=== PATIENT | female | born 1980 | race Two or more races ===

== ENCOUNTER 2017-01-17 13:40 | Emergency (ER) | payer MEDICAID ==
--- NOTE | ~2017-01-17 | ER ---
PATIENT'S NAME: FUNMILAYO MORA [facility] AGE: 36 Y [address] ROOM: [place] [address] LOCATION: [facility] ADMIT DATE: 01/17/2017 ER/Outpatient Report DISCHARGE DATE: 01/17/2017 FAMILY PHYSICIAN: PHYSICIAN, NO ATTENDING PHYSICIAN: Rufino Winkler Time of Patient's Arrival: 1340 hours. Time of Patient's Evaluation: 1350 hours. CHIEF COMPLAINT: Heart palpitations. HISTORY OF PRESENT ILLNESS: This is a 36-year-old, qot-Eqjepoy-ozpzzpvt female, who presents to the ER with some heart palpitations. Interpretation was done through the [employer] [facility]. The patient states that around 5:30 this morning someone woke her up out of her sleep and she was startled and it scared her and she felt her heart racing at that time. She states that she felt a little bit short of breath with her speech after this occurred. She states that she has never had anything like this before. She also went to work today and she felt like her heart was racing at work today as well for approximately 30 minutes. She states she has been taking some energy supplementations to help her get a lot of energy to get through her day and also to help her exercise. She has been taking this the last couple of months. She also states that she missed a menstrual cycle. She denies any other problems at this time. ALLERGIES: NO KNOWN ALLERGIES. MEDICATIONS: Please see medication list in nurse's notes. PAST MEDICAL HISTORY: She was treated for depression 7 months ago. SOCIAL HISTORY: She smokes cigarettes. Denies any drug or alcohol use. REVIEW OF SYSTEMS: All systems are reviewed and are negative with the exception of those discussed in the HPI. PHYSICAL EXAMINATION: VITAL SIGNS: Height 5 feet 7 inches stated, weight 71.2 kg taken, blood pressure is 107/68, pulse 84, respirations 14, temperature 98.7 degrees PATIENT'S NAME: FUNMILAYO MORA [facility] AGE: 36 Y [address] ROOM: [place] [address] LOCATION: [facility] ADMIT DATE: 01/17/2017 ER/Outpatient Report DISCHARGE DATE: 01/17/2017 FAMILY PHYSICIAN: PHYSICIAN, NO ATTENDING PHYSICIAN: Peterson,Rufino J orally, and saturations 97% on room air. [place] Coma Score is 15. GENERAL: Alert, calm, well-developed 36-year-old, in no acute distress. HEENT: Head: Normocephalic. Eyes: Pupils are equal and active to light. She does display moist mucous membranes. LUNGS: Clear to auscultation bilaterally. HEART: Regular rate and rhythm. ABDOMEN: Soft, it is nontender. She has good bowel sounds throughout. EXTREMITIES: No clubbing or cyanosis. She has no pedal edema. She has full range of motion of all of her limbs. SKIN: Warm, dry, and intact. LABORATORY DATA: CBC: White count is 8.1, hemoglobin is 15.1, platelets are 227, and ANC is 4.9. INR is 0.99. CMS: Glucose is 104, otherwise unremarkable. Magnesium is 2.2. CPK is 64, CK-MB is 1.0, troponin I is less than 0.040. HCG was positive at 2961.0. TSH is 2.880. EKG shows sinus rhythm. Chest x-ray was bilateral was canceled after test came back. IMPRESSION: 1. Heart palpitations. 2. Positive . ASSESSMENT AND PLAN: We did monitor the patient here for quite some time. She had no other further heart palpitations while she was here. We will dismiss the patient to home. She needs to continue to push fluids. I advised her to take vitamins. She needs to continue to monitor her symptoms and follow up with her primary care physician for followup. The patient should not take any more of the energy supplements that she has been taking either. The patient understands and agrees with care. XIN BURTON PA-C FOR DO RICHARD MESSINA/bhavna /[id number] d: t: 01/24/17 1359, OUTPATIENT REPORT
[2017-01-17 14:42] LABS: BASOPHIL % 0.1 %; HEMATOCRIT 43.3 % (33.0-46.0); HEMOGLOBIN 15.1 g/dL (11.0-15.0); IMMATURE GRANULOCYTE % 0.4 %; LYMPHOCYTE # 2.6 K/uL (0.8-4.0); LYMPHOCYTE % 32.4 %; MCH 31.6 pg (27.0-34.0); MCHC 34.9 gm/dL (32.0-36.5); MCV 90.6 fl (83.0-98.0); MONOCYTE # 0.6 K/uL (0.0-1.0); MONOCYTE % 6.9 %; MPV 10.6 fl (9.4-12.4); NEUTROPHIL # (ANC) 4.9 K/uL (1.8-7.8); NEUTROPHIL % 60.2 %; NRBC % 0 /100WBC (0-0.00); PLATELET COUNT 227 K/uL (150-450); RBC 4.78 M/uL (3.50-5.50); RDW-CV 12.2 % (11.9-14.6); WBC 8.1 K/uL (4.0-11.0)
[2017-01-17 14:58] LABS: INR - (THERAPEUTIC) 0.99 (0.92-1.07); PROTIME 10.4 SECONDS (9.8-11.4); PTT 29 SECONDS (25-32)
[2017-01-17 15:04] LABS: ALBUMIN 3.5 gm/dL (3.5-5.0); ALK PHOS 59 IU/L (33-138); ALT 16 IU/L (12-78); AST 12 IU/L (10-40); BLOOD UREA NITROGEN 9 mg/dL (6-24); CALCIUM 8.7 mg/dL (8.5-10.5); CHLORIDE 110 mMol/L (96-110); CO2 22 mMol/L (22-32); CPK 64 IU/L (21-215); CREATININE 0.8 mg/dL (0.5-1.1); ESTIMATED GFR (MDRD EQUATION) > 60; MAGNESIUM 2.2 mg/dL (1.8-2.6); SODIUM 139 mMol/L (135-145); TOTAL BILIRUBIN 0.2 mg/dL (0.0-1.5); TOTAL PROTEIN 6.7 g/dL (6.0-8.4)
== END 2017-01-17 16:18 | disposition disaster alternative care site (69) ==
LOC: GMED 13:40
PROVIDERS: Physician Assistant Medical
DX: R00.2 Palpitations (principal); F17.210 Nicotine dependence, cigarettes, uncomplicated; F32.9 Major depressive disorder, single episode, unspecified; Z33.1 Pregnant state, incidental

== ENCOUNTER 2017-01-24 14:09 | Emergency (ER) | payer MEDICAID ==
--- NOTE | ~2017-01-24 | ER ---
PATIENT'S NAME: FUNMILAYO MORA [facility] AGE: 36 Y [address] ROOM: [place] [address] LOCATION: [facility] ADMIT DATE: 01/24/2017 ER/Outpatient Report DISCHARGE DATE: 01/24/2017 FAMILY PHYSICIAN: PHYSICIAN, NO ATTENDING PHYSICIAN: Jazzy Winkler Time of Arrival: 1409 hours. Time of Evaluation: 1425 hours. CHIEF COMPLAINT: Abdominal discomfort, . HISTORY OF PRESENT ILLNESS: This is a 36-year-old, dbm-Gupqyjy-wlhlbexe female, who presents to the ER. She states she has not been feeling well for the past 2 days. Interpretation was done through our dental laboratory technician, Mac. She states that she works at [employer]. She has to lift heavy things. She states that she has noticed some lower abdominal discomfort after her strenuous work shift. She states she has also noticed some vaginal spotting after voiding. She has not had to use a pad for her bleeding. She is wanting a work note stating that she can have light duty until she is seen by her doctor. She has had no troubles with urination. No cramping sensation. No fever or chills. No troubles with bowel movements. She also reports that she has had a right ovarian cyst 6 months ago. She states that she has had no further heart palpitations since her last visit here in the emergency room since she stopped taking her energy supplement. ALLERGIES: NO KNOWN ALLERGIES. MEDICATIONS: None. PAST MEDICAL HISTORY: Negative. PAST SURGICAL HISTORY: Right knee, right hand, and wrist surgery. SOCIAL HISTORY: She is a [employer] employe. Denies smoking or drug use. REVIEW OF SYSTEMS: All systems were reviewed and were negative with the exception of those discussed in the HPI. PATIENT'S NAME: FUNMILAYO MORA [facility] AGE: 36 Y [address] ROOM: [place] [address] LOCATION: [facility] ADMIT DATE: 01/24/2017 ER/Outpatient Report DISCHARGE DATE: 01/24/2017 FAMILY PHYSICIAN: PHYSICIAN, NO ATTENDING PHYSICIAN: Jazzy Winkler PHYSICAL EXAMINATION: VITAL SIGNS: Weight 68 kg taken, blood pressure is 119/74, pulse 70, respirations 18, temperature 98.4 degrees orally, saturations 99% on room air. [place] Coma Score is 15. GENERAL: An alert, calm, well-developed female, in no acute distress. LUNGS: Clear to auscultation bilaterally. No wheezes or crackles. Normal respiratory effort. HEART: Regular rate and rhythm. No lifts, thrills, or murmurs. ABDOMEN: Soft, it is nontender. She has good bowel sounds throughout. No masses are palpated. EXTREMITIES: No clubbing or cyanosis. She has full range of motion of all limbs. LABORATORY DATA AND X-RAYS: CBC: White count is 7.4, hemoglobin is 14.4, platelets 251. HCG is 15,530.0 Urinalysis is negative for any infection. There is no blood in her urine. IMPRESSION: Intrauterine with vaginal spotting. ASSESSMENT AND PLAN: I discussed the patient's care with Dr. Winkler. Dr. Winkler did a bedside ultrasound, which showed a sac inside the uterus. No cardiac movement was detected at this time, most likely due to early . The patient did rest comfortably her entire stay. Her abdomen remained nonsurgical and nontender. We will have her continue to push fluids. Monitor her symptoms. Pelvic rest. I would like her to follow up with her primary care physician as she already has set up at the beginning of February, and I did write her for a note for light duty. The patient understands and agrees with care. XIN BURTON PA-C FOR JAZZY WINKLER DO ACDayne/modl /[id number] ATTENDING ADDENDUM: I saw and evaluated the patient. I have discussed with the PA, agree with the PA's findings and plan and agree with the documented note above. Bedside ultrasound does show a yolk sac within the uterus found in two different planes. There is no evidence of adnexal mass. JAZZY WINKLER DO d: 01/24/172305 t: 01/29/172045, OUTPATIENT REPORT
[2017-01-24 15:13] LABS: BASOPHIL % 0.1 %; HEMATOCRIT 41.3 % (33.0-46.0); HEMOGLOBIN 14.4 g/dL (11.0-15.0); IMMATURE GRANULOCYTE % 0.3 %; LYMPHOCYTE # 2.5 K/uL (0.8-4.0); LYMPHOCYTE % 34.3 %; MCHC 34.9 gm/dL (32.0-36.5); MCV 88.8 fl (83.0-98.0); MONOCYTE # 0.5 K/uL (0.0-1.0); MONOCYTE % 6.6 %; MPV 10.3 fl (9.4-12.4); NEUTROPHIL # (ANC) 4.3 K/uL (1.8-7.8); NEUTROPHIL % 58.7 %; NRBC % 0 /100WBC (0-0.00); PLATELET COUNT 251 K/uL (150-450); RBC 4.65 M/uL (3.50-5.50); RDW-CV 11.9 % (11.9-14.6); WBC 7.4 K/uL (4.0-11.0)
[2017-01-24 15:27] LABS: BILIRUBIN URINE NEGATIVE (NEGATIVE); BLOOD URINE NEGATIVE /UL (NEGATIVE); COLOR URINE YELLOW (YELLOW); GLUCOSE URINE NEGATIVE (NEGATIVE); KETONE URINE NEGATIVE (NEGATIVE); LEUKOCYTES URINE NEGATIVE /UL (NEGATIVE); NITRITE URINE NEGATIVE (NEGATIVE); PROTEIN URINE NEGATIVE (NEGATIVE); SPEC GRAVITY URINE 1.025 (1.003-1.035); TURBIDITY URINE CLEAR (CLEAR); UROBILINOGEN URINE NORMAL (NORMAL)
== END 2017-01-24 16:04 | disposition disaster alternative care site (69) ==
LOC: GMED 14:09
PROVIDERS: Emergency Medicine
DX: O26.851 Spotting complicating pregnancy, first trimester (principal); O09.521 Supervision of elderly multigravida, first trimester; Z98.890 Other specified postprocedural states

== ENCOUNTER 2017-02-09 10:54 | Emergency (ER) | payer MEDICAID ==
--- NOTE | ~2017-02-09 | ER ---
PATIENT'S NAME: FUNMILAYO MORA [facility] AGE: 36 Y [address] ROOM: [place] [address] LOCATION: [facility] ADMIT DATE: 02/09/2017 ER/Outpatient Report DISCHARGE DATE: 02/09/2017 FAMILY PHYSICIAN: PHYSICIAN, NO ATTENDING PHYSICIAN: Jordin Marino Time of Arrival: 1054 hours. Time of Evaluation: 1137 hours. IDENTIFICATION: A 36-year-old female. CHIEF COMPLAINT: Work restrictions. HISTORY OF PRESENT ILLNESS: The patient is a 36-year-old G6, P2 at 9 weeks' gestation by LMP of 12/07/2016. She has had 2 spontaneous ABs and 1 ectopic . She was seen here in the emergency room on January 17 with heart palpitations. At that date, she was given a note for work. She was seen again on January 24, and had some spotting. She did have a bedside ultrasound per Dr. Winkler, which showed a yolk sac within the uterus. No evidence of adnexal mass. Again, she was given a work note. Then on , she was given yet an additional work note that she could return with restrictions. She states that she needs a work note to return with no restrictions. She is feeling fine. She has had no bleeding since January 25. She has no pain. She is not lightheaded or dizzy. She had been drinking some energy drinks, and the palpitations have resolved since discontinuing those. ALLERGIES: NO KNOWN DRUG ALLERGIES. MEDICATIONS: No current medications. MEDICAL PROBLEMS: Depression 7 months ago, herniated lumbar disk. PREVIOUS SURGERIES: Right knee, hand, and wrist, and 2 normal vaginal deliveries. SOCIAL HISTORY: The patient works at [employer]. She lives in [place]. Tobacco use, denies. Alcohol use, denies. Drug use, denies. PATIENT'S NAME: FUNMILAYO MORA [facility] AGE: 36 Y [address] ROOM: [place] [address] LOCATION: [facility] ADMIT DATE: 02/09/2017 ER/Outpatient Report DISCHARGE DATE: 02/09/2017 FAMILY PHYSICIAN: PHYSICIAN, MEAGAN ATTENDING PHYSICIAN: Jordin Marino FAMILY HISTORY: No pertinent family history identified. REVIEW OF SYSTEMS: All systems reviewed and negative other than what is noted in the HPI. PHYSICAL EXAMINATION: VITAL SIGNS: Height 5 feet 5 inches, weight 70.4 kg, blood pressure 120/73, pulse 70, respirations 17, temp 98.2, and saturations 98%. GENERAL: A 36-year-old female, in no acute distress. HEENT: Head: Normocephalic, atraumatic. Eyes: Pupils equal and reactive to light and accommodation. Extraocular movements intact. Nose: Mucosa pink. No lesions or drainage. Mouth: No lesions. Pharynx benign. NECK: Supple. No lymphadenopathy. No nuchal rigidity. LUNGS: Clear to auscultation. HEART: Regular rate and rhythm. ABDOMEN: Soft, nondistended, nontender. SKIN: [place], warm, and dry. No lesions or rashes noted. NEURO: The patient is alert and oriented. No cranial nerve defects. She has no lower extremity edema. No calf tenderness. IMPRESSION: Intrauterine , 9 weeks' gestation. PLAN: Okay to return to work as tolerated. No restrictions. Follow up with her [employer] of choice. Follow up sooner if increase in pain, bleeding problems, or concerns. The patient understands and agrees, and all questions have been answered. JORDIN MARINO MD CAR/modl /[id number] d: 02/09/17 2139 t: 02/13/17911, OUTPATIENT REPORT
== END 2017-02-09 12:04 | disposition disaster alternative care site (69) ==
LOC: GMED 10:54
DX: Z02.79 Encounter for issue of other medical certificate (principal); Z98.890 Other specified postprocedural states; O99.331 Smoking (tobacco) complicating pregnancy, first trimester; F17.200 Nicotine dependence, unspecified, uncomplicated; Z3A.09 9 weeks gestation of pregnancy